=== PATIENT | female | born 1955 | race Caucasian/White ===

== ENCOUNTER → 2023-05-02 18:16 | Outpatient (REF) | payer MEDICARE, OTHER, SELFPAY | LOC: WDC 18:16 | PROVIDERS: ATTENDING PHYSICIAN Obstetrics & Gynecology | DX: Z12.31 Encounter for screening mammogram for malignant neoplasm of breast (principal) | CPT/HCPCS: 77063; 77067 ==

== ENCOUNTER 2023-08-17 08:49 | Emergency (ER) | payer MEDICARE, OTHER, SELFPAY ==
[2023-08-17 08:55] VITALS: BP 119/78
--- NOTE | 2023-08-17 09:15 | EDRN ---
Patient discharged by Ashu Hensley PA-C prior to this RN's assessment.
--- NOTE | 2023-08-17 09:18 | ED.GENMED ---
Addendum entered and electronically signed by Lane Hensley PA-C 08/17/23 13:56:
Called pt and updated regarding abnormal XR findings. 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
Original Note:
History of Present Illness
General
Chief Complaint: Fall
Time Seen by Provider: 08/17/23 09:05
History of Present Illness
History of Present Illness:
67-year-old female presents to the emergency department for evaluation of left foot pain and swelling, stepped awkwardly and fell down the final step of her stairwell. She is able to bear weight with discomfort. Bruising and swelling noted to the
dorsum of the midfoot.
Review of Systems
Review of Systems
Allergies reviewed?: Yes
All Other Systems: ROS reviewed and negative except as documented in HPI and ROS
Phy Exam
Physical Exam
Physical Exam:
GEN: Well appearing, NAD, WDWN
HEENT: Oral mucosa moist, no scleral icterus
Cardiac: Regular rate
Lung: No respiratory distress, no tachypnea
MSK: Ecchymosis and swelling to the dorsal lateral midfoot. There is mild tenderness to this area but no focal bony tenderness to the base of the fifth metatarsal, medial or lateral malleolus. Left ankle and digital range of motion normal
Skin: Good color, no pallor or jaundice, no rashes
Neuro: AO x3, moves all extremities freely
Psych: Calm, cooperative
Course
Orders/Labs/Results
Orders:
Orders
08/17/23 08:57
Foot, Left 3 View [CR Foot - Left Min 3 Views] Urgent
Comment:
Reason For Exam: left foot pain tripped down one step yesterday
Vital Signs
Initial and Last Documented VS:
Initial Vital Signs
Temp Pulse Resp BP Pulse Ox
98.5 F 50 16 119/78 98
08/17/23 08:55 08/17/23 08:55 08/17/23 08:55 08/17/23 08:55 08/17/23 08:55
Last Documented Vital Signs
Temp Pulse Resp BP Pulse Ox
98.5 F 50 16 119/78 98
08/17/23 08:55 08/17/23 08:55 08/17/23 08:55 08/17/23 08:55 08/17/23 08:55
MDM/Problems Addressed
MDM/Problems Addressed:
X-rays independently interpreted by me show no evidence for acute fracture. Discussed supportive care
*Critical Care Note
Total Time (30-74mins, 75-104mins- exclusive of procedures): Not Applicable
ED Attending Note
-
Portions of this chart may have been created with voice recognition software.� Occasional wrong word or��sound alike� substitutions may have occurred due to the inherent limitations of voice recognition software.
Discharge Plan
Departure
Patient Disposition: Home (Routine Discharge)
Date of Disposition: 08/17/23
Time of Disposition: 09:19
Patient with high blood pressure during this ER visit?: No
Discharge Problem:
Sprain of foot, left
Instructions: Foot Sprain ED
Activity Restrictions/Additional Instructions:
Ice often and keep elevated
Take ibuprofen and acetaminophen as needed for pain
Discharge Date and Time
Print Language: SLOVAK
== END 2023-08-17 09:15 | disposition home or self-care (01) ==
LOC: EMR 08:49
PROVIDERS: EMERGENCY PHYSICIAN Emergency Medicine; FAMILY PHYSICIAN Internal Medicine
DX: S93.602A Unspecified sprain of left foot, initial encounter (principal); W19.XXXA Unspecified fall, initial encounter
CPT/HCPCS: 99283; 73630

== ENCOUNTER → 2024-02-09 10:12 | Outpatient (REF) | payer MEDICARE, OTHER, SELFPAY | LOC: RAD 10:12 | PROVIDERS: ATTENDING PHYSICIAN Obstetrics & Gynecology; FAMILY PHYSICIAN Internal Medicine | DX: N95.9 Unspecified menopausal and perimenopausal disorder (principal) | CPT/HCPCS: 77080 ==

== ENCOUNTER → 2024-05-02 18:21 | Outpatient (REF) | payer MEDICARE, OTHER, SELFPAY | LOC: WDC 18:21 | PROVIDERS: ATTENDING PHYSICIAN Obstetrics & Gynecology | DX: Z12.31 Encounter for screening mammogram for malignant neoplasm of breast (principal) | CPT/HCPCS: 77063; 77067 ==

== ENCOUNTER → 2024-09-09 12:06 | Outpatient (REF) | payer MEDICARE, OTHER, SELFPAY | LOC: MRI 3T 12:06 | PROVIDERS: ATTENDING PHYSICIAN Orthopaedic Surgery; FAMILY PHYSICIAN Internal Medicine | DX: M25.511 Pain in right shoulder (principal) | CPT/HCPCS: 73221 ==

== ENCOUNTER → 2024-10-14 08:34 | Outpatient (REF) | payer MEDICARE, OTHER, SELFPAY | LOC: SDSPAT 08:34 | PROVIDERS: ATTENDING PHYSICIAN Orthopaedic Surgery; FAMILY PHYSICIAN Internal Medicine | DX: M75.111 Incomplete rotator cuff tear or rupture of right shoulder, not specified as traumatic (principal); M25.819 Other specified joint disorders, unspecified shoulder; Z01.818 Encounter for other preprocedural examination | CPT/HCPCS: 36415; 93005 ==

== ENCOUNTER 2024-10-24 06:24 | Day surgery (SDC) | payer MEDICARE, OTHER, SELFPAY ==
--- NOTE | 2024-10-14 13:41 | PTCARENOTE ---
Abnormal ECG done 10/14/[address] Peña, no further interventions required.
[2024-10-14 14:10] VITALS: BMI 22.0
[2024-10-24] VITALS (10 sets, daily range): BP systolic 100–117; BP diastolic 59–75; BMI 22.0
[2024-10-24] MEDS: CELEBREX 200 MG PO (08:27)
[2024-10-24] MEDS: TYLENOL 1000 MG PO (08:27)
[2024-10-24] MEDS: NORMOSOL-R/PLASMALYTE-A 1000 IV (08:28)
== END 2024-10-24 12:30 | disposition home or self-care (01) ==
LOC: SDS 06:24
PROVIDERS: ATTENDING PHYSICIAN Orthopaedic Surgery; FAMILY PHYSICIAN Internal Medicine
DX: M75.111 Incomplete rotator cuff tear or rupture of right shoulder, not specified as traumatic (principal); M25.819 Other specified joint disorders, unspecified shoulder
CPT/HCPCS: 29827; C1713